=== PATIENT | male | born 1955 | race Caucasian/White ===

== ENCOUNTER 2019-11-20 21:06 | Emergency (ER) | payer MEDICARE ==
[2019-11-20 21:17] VITALS: BP 142/87; PULSE 79
--- NOTE | 2019-11-20 21:29 | EDM.PDOC ---
ED HPI GENERAL MEDICAL PROBLEM - General Chief Complaint: Chest Pain Stated Complaint: CHEST PAIN Time Seen by Provider: 11/20/19 21:13 - History of Present Illness INITIAL COMMENTS - FREE TEXT/NARRATIVE: 64-year-old male presents the emergency room with chest pain. This pain is been going on for 2 days 3 days ago he was moving quite a bit of firewood he notices the pain gets worse if he gets up and moves around. However walking and not using his upper torso muscles does not seem to bother it. Patient has no known history of coronary artery disease. He has had a 7- year smoking history but quit many years ago. The patient is not treated for hypertension or hyperlipidemia but he believes he has hyperlipidemia. The patient does not take aspirin. The patient is not having any discomfort at this moment. The patient has some maneuvers with his arms that tend to make the pain worse however he cannot duplicate those here in the emergency department. Patient does not know his family history as he is adopted. Left Chest Pain Score (Numeric/FACES): 4 - Related Data Allergies Allergy/AdvReac Type Severity Reaction Status Date / Time No Known Allergies Allergy Verified 11/20/19 21:15 Home Meds: Home Meds . [No Known Home Meds] 04/13/15 [History] Past Medical History - Past Health History Medical/Surgical History: Denies Medical/Surgical History ED ROS GENERAL - Review of Systems Review Of Systems: See Below Constitutional: Reports: No Symptoms HEENT: Reports: No Symptoms Respiratory: Reports: Pleuritic Chest Pain, Cough. Denies: Shortness of Breath , Wheezing Cardiovascular: Reports: Chest Pain. Denies: Dyspnea on Exertion, Edema Endocrine: Reports: No Symptoms GI/Abdominal: Reports: No Symptoms. Denies: Abdominal Pain, Constipation, Diarrhea, Nausea, Vomiting Musculoskeletal: Reports: No Symptoms Skin: Reports: No Symptoms Neurological: Reports: No Symptoms Psychiatric: Reports: No Symptoms Hematologic/Lymphatic: Reports: No Symptoms Immunologic: Reports: No Symptoms ED EXAM, GENERAL - Physical Exam Exam: See Below Exam Limited By: No Limitations General Appearance: Alert, No Apparent Distress Head: Atraumatic, Normocephalic Neck: Normal Inspection, Supple, Non-Tender, Full Range of Motion Respiratory/Chest: No: No Respiratory Distress, Lungs Clear, Normal Breath Sounds Cardiovascular: Regular Rate, Rhythm, No Edema, No Murmur GI/Abdominal: Normal Bowel Sounds, Soft, Non-Tender Back Exam: Normal Inspection. No: CVA Tenderness (L), Paraspinal Tenderness Extremities: Normal Inspection, No Pedal Edema Neurological: Alert, Oriented, Normal Cognition EKG INTERPRETATION EKG Date: 11/20/19 Rhythm: NSR Woodruff: Normal P-Wave: Present QRS: Normal ST-T: Other (Inverted T wave in aVF nonspecific nondiagnostic ST changes) QT: Normal Comparison: Change From Previous EKG EKG Interpretation Comments: The inverted T waves in aVF are new compared to April 2015 Course - Vital Signs Last Recorded V/S: Last Vital Signs Temp 35.9 C L 11/20/19 21:15 Pulse 79 11/20/19 21:15 Resp 18 11/20/19 21:15 BP 142/87 H 11/20/19 21:15 Pulse Ox 92 L 11/20/19 21:15 - Orders/Labs/Meds Orders: Active Orders 24 hr Category Date Time Status EKG Documentation Completion [RC] ASDIRECTED Care 11/20/19 21:25 Active EKG Documentation Completion [RC] ASDIRECTED Care 11/20/19 21:50 Active EKG Documentation Completion [RC] STAT Care 11/20/19 22:25 Active Chest 1V Frontal [CR] Stat Exams 11/20/19 21:40 Taken EKG 12 Lead [EK] Stat Ther 11/20/19 21:25 Ordered EKG 12 Lead [EK] Stat Ther 11/20/19 21:50 Ordered Labs: Laboratory Tests 11/20/19 11/20/19 11/20/19 Range/Units 21:45 21:45 21:45 WBC 9.99 H (4.23-9.07) K/mm3 RBC 4.82 (4.63-6.08) M/mm3 Hgb 15.4 (13.7-17.5) gm/dl Hct 44.6 (40.1-51.0) % MCV 92.5 H (79.0-92.2) fl MCH 32.0 (25.7-32.2) pg MCHC 34.5 (32.2-35.5) g/dl RDW Std Deviation 42.3 (35.1-43.9) fL Plt Count 364 H (163-337) K/mm3 MPV 9.4 (9.4-12.3) fl Neut % (Auto) 71.0 H (34.0-67.9) % Lymph % (Auto) 18.0 L (21.8-53.1) % Davidson % (Auto) 8.5 (5.3-12.2) % Eos % (Auto) 1.8 (0.8-7.0) Baso % (Auto) 0.4 (0.1-1.2) % Neut # (Auto) 7.09 H (1.78-5.38) K/mm3 Lymph # (Auto) 1.80 (1.32-3.57) K/mm3 Davidson # (Auto) 0.85 H (0.30-0.82) K/mm3 Eos # (Auto) 0.18 (0.04-0.54) K/mm3 Baso # (Auto) 0.04 (0.01-0.08) K/mm3 PT 10.7 (9.7-12.0) SECONDS INR 0.98 D-Dimer, Quantitative (0.19-0.50) mg/L Sodium 141 (136-145) mEq/L Potassium 3.5 (3.5-5.1) mEq/L Chloride 105 (98-107) mEq/L Carbon Dioxide 24 (21-32) mEq/L Anion Gap 15.5 H (5-15) BUN 23 H (7-18) mg/dL Creatinine 1.0 (0.7-1.3) mg/dL Est Cr Clr Drug Dosing 73.65 mL/min Estimated GFR (MDRD) > 60 (>60) mL/min BUN/Creatinine Ratio 23.0 H (14-18) Glucose 138 H (80-115) mg/dL Calcium 9.0 (8.5-10.1) mg/dL Total Bilirubin 0.6 (0.2-1.0) mg/dL AST 18 (15-37) U/L ALT 30 (16-63) U/L Alkaline Phosphatase 67 (46-116) U/L Troponin I < 0.017 (0.00-0.056) ng/mL Total Protein 7.7 (6.4-8.2) g/dl Albumin 3.6 (3.4-5.0) g/dl Globulin 4.1 gm/dL Albumin/Globulin Ratio 0.9 L (1-2) 11/20/19 11/21/19 Range/Units 21:45 00:15 WBC (4.23-9.07) K/mm3 RBC (4.63-6.08) M/mm3 Hgb (13.7-17.5) gm/dl Hct (40.1-51.0) % MCV (79.0-92.2) fl MCH (25.7-32.2) pg MCHC (32.2-35.5) g/dl RDW Std Deviation (35.1-43.9) fL Plt Count (163-337) K/mm3 MPV (9.4-12.3) fl Neut % (Auto) (34.0-67.9) % Lymph % (Auto) (21.8-53.1) % Davidson % (Auto) (5.3-12.2) % Eos % (Auto) (0.8-7.0) Baso % (Auto) (0.1-1.2) % Neut # (Auto) (1.78-5.38) K/mm3 Lymph # (Auto) (1.32-3.57) K/mm3 Davidson # (Auto) (0.30-0.82) K/mm3 Eos # (Auto) (0.04-0.54) K/mm3 Baso # (Auto) (0.01-0.08) K/mm3 PT (9.7-12.0) SECONDS INR D-Dimer, Quantitative 0.38 (0.19-0.50) mg/L Sodium (136-145) mEq/L Potassium (3.5-5.1) mEq/L Chloride (98-107) mEq/L Carbon Dioxide (21-32) mEq/L Anion Gap (5-15) BUN (7-18) mg/dL Creatinine (0.7-1.3) mg/dL Est Cr Clr Drug Dosing mL/min Estimated GFR (MDRD) (>60) mL/min BUN/Creatinine Ratio (14-18) Glucose (80-115) mg/dL Calcium (8.5-10.1) mg/dL Total Bilirubin (0.2-1.0) mg/dL AST (15-37) U/L ALT (16-63) U/L Alkaline Phosphatase (46-116) U/L Troponin I < 0.017 (0.00-0.056) ng/mL Total Protein (6.4-8.2) g/dl Albumin (3.4-5.0) g/dl Globulin gm/dL Albumin/Globulin Ratio (1-2) Meds: Medications Discontinued Medications Generic Name Dose Route Start Last Admin Trade Name Akash PRN Reason Stop Dose Admin Aspirin 324 mg 11/20/19 21:52 11/20/19 22:04 Aspirin PO 11/20/19 21:53 324 mg ONETIME ONE Administration - Re-Assessments/Exams Free Text/Narrative Re-Assessment/Exam: 11/21/19 00:59 Opponent is negative I did a total of 3 EKGs on this gentleman his first EKG had some baseline artifact especially in the inferior leads admitted get a good look at it somewhat difficult it appeared that he had inverted T waves in aVF and the stayed the same and constant through EKG 2 and 3 he also had some nonspecific ST changes on the initial EKG. Chest x-ray shows no acute cardiopulmonary changes. Initial troponin was negative second troponin was negative his heart score is 3 he got a point for moderately suspicious history he got a point for possible risk factors with a history of hyperlipidemia untreated. He had some nonspecific nondiagnostic changes on his EKG but not repolarization abnormalities and a second troponin which helped somewhat to get I advised the patient follow-up with his regular physician and discuss the pros and cons of getting a heart stress test preferably a stress echo or stress Cardiolite. The patient agrees with going home at this time. The patient has some chest discomfort here but this is mostly brought on by turning a certain way or bending over to take his boots off. After my initial encounter with this gentleman I thought a lot of his pain was probably due to muscle skeletal cause for moving all the firewood the other day. Departure - Departure Time of Disposition: 01:04 Disposition: Home, Self-Care 01 Clinical Impression: Chest pain Instructions: Nonspecific Chest Pain, Adult Referrals: Christ Garcia MD [Primary Care Provider] - Forms: ED Department Discharge Additional Instructions: Return to the emergency room with any questions problems or worsening symptoms. Follow-up with your regular doctor in 1 week discuss getting a stress test done such as a stress Cardiolite or stress echo. Take a daily baby aspirin until advised not to. Tylenol as needed for chest wall pain. Sepsis Event Note - Focused Exam Vital Signs: Vital Signs Temp Pulse Resp BP Pulse Ox 11/20/19 21:15 35.9 C L 79 18 142/87 H 92 L Date Exam was Performed: 11/21/19 Time Exam was Performed: 01:20 - My Orders Last 24 Hours: My Active Orders 11/20/19 21:25 EKG Documentation Completion [RC] ASDIRECTED EKG 12 Lead [EK] Stat 11/20/19 21:40 Chest 1V Frontal [CR] Stat 11/20/19 21:50 EKG Documentation Completion [RC] ASDIRECTED EKG 12 Lead [EK] Stat 11/20/19 22:25 EKG Documentation Completion [RC] STAT - Assessment/Plan Last 24 Hours: My Active Orders 11/20/19 21:25 EKG Documentation Completion [RC] ASDIRECTED EKG 12 Lead [EK] Stat 11/20/19 21:40 Chest 1V Frontal [CR] Stat 11/20/19 21:50 EKG Documentation Completion [RC] ASDIRECTED EKG 12 Lead [EK] Stat 11/20/19 22:25 EKG Documentation Completion [RC] STAT
[2019-11-20] MEDS ORDERED: Aspirin 81 MG Tab.Chew PO ONE (21:52)
--- NOTE | 2019-11-21 06:28 | CR ---
Chest: Frontal view of the chest was obtained utilizing portable technique. Comparison: Prior chest x-ray of 04/13/15. Heart size and mediastinum are normal. Lungs are clear with no acute parenchymal change. Bony structures are grossly intact. Impression: 1. Nothing acute is seen on portable chest x-ray. Diagnostic code #1 This report was dictated in MDT
== END 2019-11-21 01:13 | disposition home or self-care (01) ==
LOC: JD.ED 21:06
DX: R07.9 Chest pain, unspecified (principal)
CPT/HCPCS: 36415; 71045; 80053; 84484; 85025; 85379; 85610; 93005; 99285; A9270; 93010

== ENCOUNTER 2020-01-10 09:11 | Emergency (ER) | payer MEDICARE ==
[2020-01-10 09:46] VITALS: BP 180/123; PULSE 82
--- NOTE | 2020-01-10 10:43 | EDM.PDOC ---
ED HPI GENERAL MEDICAL PROBLEM - General Chief Complaint: Genitourinary Problem Stated Complaint: KIDNEY PROBLEMS/POST SURGERY Time Seen by Provider: 01/10/20 10:42 Source of Information: Reports: Patient History Limitations: Reports: No Limitations - History of Present Illness INITIAL COMMENTS - FREE TEXT/NARRATIVE: 64-year-old male presents to the ED for evaluation of diffuse lower abdominal pain and inability to void. Patient underwent left sided nephrectomy with the aid of the da Malika robot in [place] 2 days ago due to cancer of the left kidney. Renal carcinoma was picked up coincidentally on CT scan of the abdomen and pelvis. He had a Ferreira catheter placed and was removed yesterday at the time of discharge. He has a history of BPH and usually had nocturia 2-3 times nightly. He states overnight he became distended in the lower abdomen with intense pain and sat or stood at the toilet for an hour with no ability to void. Bladder scan done by triage nurse revealed 363 mils of urine in the bladder. Second 1 done after I seen him was 450 mils . he also reports he has not been able to have a bowel on for the last 3 days. He has been taking Senokot orally for the last 2 days and so far no bowel movement. This may be delayed of course due to urinary retention. Onset: Gradual Onset Date: 01/09/20 Onset Time: 20:00 Duration: Hour(s):, Getting Worse Location: Reports: Abdomen (His lower abdominal pain with inability to void.) Quality: Reports: Pressure Severity: Severe (Occasional colicky pain which I interpret as bladder spasms.) Improves with: Reports: None Worsens with: Reports: None Context: Reports: Other (Recent urological surgery with left-sided nephrectomy 2 days ago in [place]. Ferreira catheter was placed intraoperatively and removed yesterday at the time of discharge. Last night he began to notice inability to void and has developed a diffuse lower abdominal pain overnight and inability of to wait this morning at all. Bladder scan reveals 450 mils of urine in his bladder). Denies: Activity, Exercise, Lifting, Sick Contact, Trauma Associated Symptoms: Reports: Nausea/Vomiting, Other (Nausea due to the intensity of the pain. Last patient issues with no bowel movement for the last 3 days.). Denies: Confusion, Chest Pain, Cough, cough w sputum, Diaphoresis, Fever/Chills, Malaise Treatments LEGAL RECEPTIONIST: Reports: Other (see below) (Is taking pain medication but stopped them as he was concerned they were causing the problem.) Bladder Pain Score (Numeric/FACES): 5 - Related Data Allergies Allergy/AdvReac Type Severity Reaction Status Date / Time No Known Allergies Allergy Verified 11/20/19 21:15 Home Meds: Home Meds Tamsulosin HCl [Flomax] 0.4 mg PO DAILY #30 cap.er.24h 01/10/20 [Rx] levoFLOXacin [Levaquin] 500 mg PO DAILY #6 tab 01/10/20 [Rx] Past Medical History - Past Health History Medical/Surgical History: Denies Medical/Surgical History HEENT History: Reports: Impaired Vision Other HEENT History: Wears glasses Gastrointestinal History: Reports: Hiatal Hernia Genitourinary History: Reports: Other (See Below) (Went left sided nephrectomy with the aid of the da Malika robot at [facility] in [place] January 07 i.e. 2 days ago.) Oncologic (Cancer) History: Reports: Renal - Past Surgical History GI Surgical History: Reports: Hernia, Abdominal Social & Family History - Family History Family Medical History: Noncontributory - Tobacco Use Smoking Status *Q: Former Smoker Used Tobacco, but Quit: Yes Month/Year Tobacco Last Used: 08/2012 - Caffeine Use Caffeine Use: Reports: Coffee, Soda - Recreational Drug Use Recreational Drug Use: Yes Recreational Drug Type: Reports: Marijuana/Hashish - Living Situation & Occupation Living situation: Reports: Single (Self-employed) Occupation: Employed ED ROS GENERAL - Review of Systems Review Of Systems: See Below Constitutional: Reports: Malaise, Weakness, Fatigue, Decreased Appetite (Did not sleep hardly at all last night.). Denies: Fever, Chills HEENT: Reports: Glasses Respiratory: Reports: No Symptoms Cardiovascular: Reports: No Symptoms Endocrine: Reports: Fatigue GI/Abdominal: Reports: Abdominal Pain (History of present illness.), Constipation : Reports: Urinary Retention (Cute urinary retention with 450 mils of urine on bladder scan) Musculoskeletal: Reports: Back Pain, Joint Pain (Tips neck at times) Skin: Reports: No Symptoms Neurological: Reports: No Symptoms Psychiatric: Reports: No Symptoms Hematologic/Lymphatic: Reports: No Symptoms Immunologic: Reports: No Symptoms ED EXAM, GI/ABD - Physical Exam Exam: See Below Exam Limited By: No Limitations General Appearance: Alert, WD/WN, Moderate Distress, Other (In obvious pain and discomfort. Temperature is 36.8 with a heart rate of 82. Respiratory to is 20 with pulse ox of 96% BP 180/123 markedly elevated.) Eyes: Bilateral: Normal Appearance (No scleral icterus or blepharal pallor.) Respiratory/Chest: Lungs Clear, Normal Breath Sounds, No Accessory Muscle Use, Respiratory Distress Cardiovascular: Normal Peripheral Pulses, Regular Rate, Rhythm, No Edema, No Gallop, No Murmur, No Rub GI/Abdominal Exam: Distended (Especially lower abdomen with clinically full bladder.), Other (And has multiple surgical scars from left-sided nephrectomy. All of them are glued shut. No signs of any abnormalities of any of the incisions. Of course they are very tender particularly around the umbilicus. Bladder is palpable up to just below the umbilicus. Dull to percussion) Back Exam: Normal Inspection. No: CVA Tenderness (L), CVA Tenderness (R) Extremities: Normal Inspection, Normal Range of Motion, Non-Tender, No Pedal Edema Neurological: Alert, Oriented, CN II-XII Intact, Normal Cognition Psychiatric: Other (Good deal of pain.) Skin Exam: Warm, Dry, Intact, Normal Color, No Rash Course - Vital Signs Last Recorded V/S: Last Vital Signs Temp 36.8 C 01/10/20 09:36 Pulse 82 01/10/20 09:36 Resp 20 01/10/20 09:36 BP 180/123 H 01/10/20 09:36 Pulse Ox 96 01/10/20 09:36 - Orders/Labs/Meds Orders: Active Orders 24 hr Category Date Time Status Insert Ferreira Catheter [Insert Urinary Catheter] [OM.PC] Care 01/10/20 11:00 Ordered Q24H Urinary Catheter Assessment [RC] ASDIRECTED Care 01/10/20 10:50 Active Abdomen 1V Flat [CR] Stat Exams 01/10/20 10:42 Taken CULTURE URINE [RM] Stat Lab 01/10/20 10:08 Received Labs: Laboratory Tests 01/10/20 Range/Units 10:18 Urine Color Yellow (Yellow) Urine Appearance Clear (Clear) Urine pH 7.0 (5.0-8.0) Ur Specific Mertzon 1.020 (1.005-1.030) Urine Protein Negative (Negative) Urine Glucose (UA) Negative (Negative) Urine Ketones Trace H (Negative) Urine Occult Blood Trace-lysed H (Negative) Urine Nitrite Negative (Negative) Urine Bilirubin Negative (Negative) Urine Urobilinogen 0.2 (0.2-1.0) Ur Leukocyte Esterase 1+ H (Negative) Urine RBC 5-10 H (0-5) /hpf Urine WBC 5-10 H (0-5) /hpf Ur Squamous Epith Cells 0-5 (0-5) /hpf Urine Bacteria Moderate H (FEW) /hpf Urine Mucus Few (FEW) /hpf Meds: Medications Discontinued Medications Generic Name Dose Route Start Last Admin Trade Name Freq PRN Reason Stop Dose Admin Levofloxacin 500 mg 01/10/20 10:51 01/10/20 11:05 Levaquin PO 01/10/20 10:52 500 mg ONETIME ONE Administration Lidocaine HCl 10 ml 01/10/20 10:51 01/10/20 11:05 Xylocaine 2% Jelly MUCMEM 01/10/20 10:52 10 ml ONETIME ONE Administration - Radiology Interpretation Free Text/Narrative:: 64-year-old male presents to the ED with acute urinary retention. Patient underwent a left sided nephrectomy for cancer of the kidney 2 days ago January 07 and seen he is in [place]. He had a Ferreira catheter placed intraoperatively and it was removed yesterday. The history suggest that he does have pre- existing BPH was not being treated. He started having diffuse lower abdominal discomfort last evening about 2000 hrs. and then has been up most of the night trying to void and is unable to do so. Second problem is constipation with no vomiting x3 days. He has been taking Senokot orally and did stop his opioids. Clinically his surgical wounds seem to be healing adequately. Urinary bladder is up to his umbilicus and contains 450 mils on last bladder scan. Plan Ferreira catheter will be inserted with plan to leave it in place for 3 days. Advised 16 -gauge coud� tip to a leg bag. He will be given Levaquin 500 mg for urinary tract prophylaxis since he had catheter in and out yesterday and reinsertion today. Urine will be sent for analysis. KUB will be done to assess the degree of constipation. - Re-Assessments/Exams Free Text/Narrative Re-Assessment/Exam: 01/10/20 11:22 Urinalysis shows trace of lysed blood. 1+ leukocyte esterase 5- 10 RBCs per high-power field 5-10 WBCs per high-power field with moderate bacteria. Culture will be ordered. 01/10/20 11:59 strain 550 mils of clear urine after Ferreira catheter placement. KUB reveals a lot of gas distending the colon and some portions of the small bowel compatible with an ileus-like pattern. Very minimal stools present in the hepatic flexure. Patient reassured that he is not constipated and will pass a lot of flatus and likely diarrhea today since he is been taking so much Senokot the last few days. The plan will be to leave the Ferreira catheter in place for the next 3 days and the patient will deflate it and remove it himself on Wednesday morning January 12. If he has not voided in 6 to 8 hours he will return for catheter placement. I will place him on Flomax 0.4 mg once daily. He will placed on Levaquin 500 mg once daily for another 6 days to prevent infection since there was 5-10 WBCs per high-power field. Patient does not plan taking any medication for his abdominal pain at this point time. Departure - Departure Time of Disposition: 12:01 Disposition: Home, Self-Care 01 Condition: Fair Clinical Impression: Acute urinary retention, Postoperative lower abdominal pain, Benign prostatic hyperplasia with incomplete bladder emptying - Discharge Information *PRESCRIPTION DRUG MONITORING PROGRAM REVIEWED*: Not Applicable *COPY OF PRESCRIPTION DRUG MONITORING REPORT IN PATIENT MARCELO: Not Applicable Prescriptions: levoFLOXacin [Levaquin] 500 mg PO DAILY #6 tab Tamsulosin HCl [Flomax] 0.4 mg PO DAILY #30 cap.er.24h Instructions: Indwelling Urinary Catheter Care, Adult, Benign Prostatic Hyperplasia, Urinary Tract Infection, Adult, [id number], Acute Urinary Retention, Male Referrals: Christ Garcia MD [Primary Care Provider] - Forms: ED Department Discharge Additional Instructions: Evaluation in the emergency room today in regards to diffuse lower abdominal pain and inability to pass your water since surgery 2 days ago. You had a Ferreira catheter placed during the surgery and it was removed at the time of discharge yesterday. History suggest that you were having troubles with enlarged prostate prior to the surgery. Up at night to void 2 or 3 times is strongly symptomatic of enlarged prostate. It is not uncommon to have acute urinary retention occur with enlarged prostate after the type of surgery you had. 450 mils of urine were identified in your bladder on bladder scan. Ferreira catheter placed and is to remain in place for the next 3 days. You can deflate the bulb that holds the Ferreira catheter in the bladder on WednesdayJanuary 12 around 8:00 in the morning. The catheter should then easily slide out. If you are not able to void or pass your water on your own within the next 68 hours you were to return to the ED for replacement of catheter. There was a little small amount of pus cells in the urine on examination today. Because of this I want you to take Levaquin 500 mg tablet once daily for another 6 days. The first tablet was started in the ED today. Next tablet is due tomorrow morning at noon. Suggest taking medication Flomax 0.4 mg once daily at bedtime to help with your large prostate and allow you to void normally hopefully only up once at night to pee. Follow-up with personal care doctor and your urologist as planned. Sepsis Event Note (ED) - Evaluation Sepsis Screening Result: No Definite Risk - Focused Exam Vital Signs: Vital Signs Temp Pulse Resp BP Pulse Ox 01/10/20 09:36 36.8 C 82 20 180/123 H 96 - My Orders Last 24 Hours: My Active Orders 01/10/20 10:08 CULTURE URINE [RM] Stat 01/10/20 10:42 Abdomen 1V Flat [CR] Stat 01/10/20 10:50 Urinary Catheter Assessment [RC] ASDIRECTED 01/10/20 11:00 Insert Ferreira Catheter [Insert Urinary Catheter] [OM.PC] Q24H - Assessment/Plan Last 24 Hours: My Active Orders 01/10/20 10:08 CULTURE URINE [RM] Stat 01/10/20 10:42 Abdomen 1V Flat [CR] Stat 01/10/20 10:50 Urinary Catheter Assessment [RC] ASDIRECTED 01/10/20 11:00 Insert Ferreira Catheter [Insert Urinary Catheter] [OM.PC] Q24H
[2020-01-10] MEDS ORDERED: Lidocaine 2% Jelly 10 ML Urojet MUCMEM ONE (10:51)
[2020-01-10] MEDS ORDERED: Levofloxacin 250 MG Tab PO ONE (10:51)
--- NOTE | 2020-01-11 09:12 | CR ---
Abdomen: Supine view of the abdomen was obtained. Comparison: No previous study. Scattered gas within small bowel and colon is seen which appears within normal limits. Surgical clips are seen overlying the left iliac wing as well as within the left mid abdomen. No soft tissue abnormality is seen. Calcification noted to the right of the pelvis most likely due to phlebolith. Slight degenerative change is noted within the lumbar spine. Impression: 1. Findings as noted above. 2. Nothing acute is seen. Diagnostic code #2 This report was dictated in MDT
== END 2020-01-10 12:33 | disposition home or self-care (01) ==
LOC: JD.ED 09:11
DX: G89.18 Other acute postprocedural pain (principal); R10.30 Lower abdominal pain, unspecified; N40.1 Benign prostatic hyperplasia with lower urinary tract symptoms; R33.8 Other retention of urine; Z87.891 Personal history of nicotine dependence
CPT/HCPCS: 51702; 51798; 74018; 81001; 87086; 99284; A9270

== ENCOUNTER 2020-01-11 10:54 | Emergency (ER) | payer MEDICARE ==
[2020-01-11 11:12] VITALS: BP 126/103; PULSE 90
--- NOTE | 2020-01-11 11:50 | EDM.PDOC ---
ED HPI GENERAL MEDICAL PROBLEM - General Chief Complaint: Genitourinary Problem Stated Complaint: CATHETER PROBLEM Time Seen by Provider: 01/11/20 11:15 Source of Information: Reports: Patient History Limitations: Reports: No Limitations - History of Present Illness INITIAL COMMENTS - FREE TEXT/NARRATIVE: Patient is a 64-year-old male who presents to the emergency department to have his Ferreira catheter checked. He was seen in our emergency department yesterday after having a nephrectomy and being unable to urinate. Ferreira catheter was placed and he was started on Levaquin and Flomax. He states that this morning he had an episode where the catheter was not draining. States that he strained slightly and the catheter did start draining, however there was a small amount of leakage around the tube at the tip of his penis. It has not leaked since that time. He presents to have it checked to make sure it is working okay. He states it is slightly uncomfortable, however not overly painful. Penis Pain Score (Numeric/FACES): 2 - Related Data Allergies Allergy/AdvReac Type Severity Reaction Status Date / Time No Known Allergies Allergy Verified 01/11/20 11:07 Home Meds: Home Meds Tamsulosin HCl [Flomax] 0.4 mg PO DAILY #30 cap.er.24h 01/10/20 [Rx] levoFLOXacin [Levaquin] 500 mg PO DAILY #6 tab 01/10/20 [Rx] Past Medical History - Past Health History Medical/Surgical History: Denies Medical/Surgical History HEENT History: Reports: Impaired Vision Other HEENT History: Wears glasses Gastrointestinal History: Reports: Hiatal Hernia Genitourinary History: Reports: Other (See Below) Oncologic (Cancer) History: Reports: Renal - Past Surgical History GI Surgical History: Reports: Hernia, Abdominal Social & Family History - Family History Family Medical History: Noncontributory - Tobacco Use Smoking Status *Q: Never Smoker - Caffeine Use Caffeine Use: Reports: None - Recreational Drug Use Recreational Drug Use: No - Living Situation & Occupation Living situation: Reports: Single (Self-employed) Occupation: Employed ED ROS GENERAL - Review of Systems Review Of Systems: Comprehensive ROS is negative, except as noted in HPI. ED EXAM, RENAL/ - Physical Exam Exam: See Below Exam Limited By: No Limitations General Appearance: Alert, WD/WN, No Apparent Distress Respiratory/Chest: No Respiratory Distress, Lungs Clear, Normal Breath Sounds, No Accessory Muscle Use, Chest Non-Tender Cardiovascular: Normal Peripheral Pulses, Regular Rate, Rhythm, No Edema, No Gallop, No JVD, No Murmur, No Rub (Male) Exam: Normal Inspection, Circumcised. No: Penile Lesions, Scrotal Swelling, Scrotum Tenderness (L) Neurological: Alert, Oriented, CN II-XII Intact, Normal Cognition, Normal Gait, Normal Reflexes, No Motor/Sensory Deficits Psychiatric: Normal Affect, Normal Mood Skin Exam: Warm, Dry, Intact, Normal Color, No Rash Course - Vital Signs Last Recorded V/S: Last Vital Signs Temp 97.6 F 01/11/20 11:08 Pulse 90 01/11/20 11:08 Resp 17 01/11/20 11:08 BP 126/103 H 01/11/20 11:08 Pulse Ox 100 01/11/20 11:08 - Orders/Labs/Meds Orders: Active Orders 24 hr Category Date Time Status Bladder Scan [RC] ASDIRECTED Care 01/11/20 11:18 Active - Re-Assessments/Exams Free Text/Narrative Re-Assessment/Exam: 01/11/20 11:48 Exam, the catheter is flowing well. Bladder scan was completed and showed 13 mils of urine. Patient discussed the option of removing the catheter at this time and seeing if he can void. I did recommend that he keep it in for as long as possible, preferably up to the 72 hours to prevent the need for reinsertion. Also discussed possibly removing the catheter and inserting a different one to see if it is more comfortable, however he declined this option. He is in agreement with this plan. He does have a syringe at home to remove it when it is time. Advised that if he is unable to void 6 to 8 hours after the Ferreira catheter was removed, he should return to the emergency department. Departure - Departure Time of Disposition: 11:49 Disposition: Home, Self-Care 01 Condition: Good Clinical Impression: Benign prostatic hyperplasia with incomplete bladder emptying, Acute urinary retention - Discharge Information *PRESCRIPTION DRUG MONITORING PROGRAM REVIEWED*: No *COPY OF PRESCRIPTION DRUG MONITORING REPORT IN PATIENT MARCELO: No Referrals: Christ Garcia MD [Primary Care Provider] - Forms: ED Department Discharge Additional Instructions: You were seen in the emergency department today to have your Ferreira catheter rechecked. On exam, it is flowing well. The option of changing the catheter to a different size to see if it is more comfortable was discussed, however the decision was made to not do that at this time. Recommend that you leave the catheter in place for as long as possible, preferably 72 hours from when it was inserted. You may remove the catheter at that time with the syringe that you have at home. If you are unable to urinate within 6 to 8 hours after the catheter is removed, you should return to the emergency department to have it reinserted. Return to the ER as needed. Sepsis Event Note (ED) - Evaluation Sepsis Screening Result: No Definite Risk - Focused Exam Vital Signs: Vital Signs Temp Pulse Resp BP Pulse Ox 01/11/20 11:08 97.6 F 90 17 126/103 H 100 - My Orders Last 24 Hours: My Active Orders 01/11/20 11:18 Bladder Scan [RC] ASDIRECTED - Assessment/Plan Last 24 Hours: My Active Orders 01/11/20 11:18 Bladder Scan [RC] ASDIRECTED
== END 2020-01-11 12:10 | disposition home or self-care (01) ==
LOC: JD.ED 10:54
DX: N40.1 Benign prostatic hyperplasia with lower urinary tract symptoms (principal); R39.14 Feeling of incomplete bladder emptying; R33.8 Other retention of urine; Z79.899 Other long term (current) drug therapy
CPT/HCPCS: 51798; 99282; 99283

== ENCOUNTER 2020-10-12 14:10 | Emergency (ER) | payer MEDICARE ==
[2020-10-12 15:47] VITALS: BP 185/104; PULSE 71
--- NOTE | 2020-10-12 17:09 | EDM.PDOC ---
ED HPI GENERAL MEDICAL PROBLEM - General Chief Complaint: Neurological Problem Stated Complaint: DIZZINESS X 4 DAYS Time Seen by Provider: 10/12/20 16:03 - History of Present Illness INITIAL COMMENTS - FREE TEXT/NARRATIVE: 65-year-old male presents the emergency room with a chief complaint of dizziness. This is been an ongoing problem but seems to be worse over the last 4 days. Patient notices if he turns his head too fast it makes it much much worse if he moves his head slowly it does not seem to be much of a problem. He also has nausea associated with this and sometimes when he has nausea and/or vomiting on its own it aggravates the dizziness. The patient has not been driving because it bothers him that much. But he is getting around okay. Patient denies any recent infections other than he thought he had an episode of food poisoning from eating a steak that was undercooked. This seems to have brought on lots of nausea and vomiting and is aggravated the dizziness. This was fairly recent. - Related Data Allergies Allergy/AdvReac Type Severity Reaction Status Date / Time No Known Allergies Allergy Verified 10/12/20 15:47 Home Meds: Home Meds Tamsulosin HCl [Flomax] 0.4 mg PO DAILY #30 cap.er.24h 01/10/20 [Rx] levoFLOXacin [Levaquin] 500 mg PO DAILY #6 tab 01/10/20 [Rx] Past Medical History - Past Health History Medical/Surgical History: Denies Medical/Surgical History HEENT History: Reports: Impaired Vision Other HEENT History: Wears glasses Gastrointestinal History: Reports: Hiatal Hernia Genitourinary History: Reports: Other (See Below) Oncologic (Cancer) History: Reports: Renal - Past Surgical History GI Surgical History: Reports: Hernia, Abdominal Male Surgical History: Reports: Nephrectomy Social & Family History - Family History Family Medical History: No Pertinent Family History - Tobacco Use Tobacco Use Status *Q: Never Tobacco User - Caffeine Use Caffeine Use: Reports: None - Recreational Drug Use Recreational Drug Use: No - Living Situation & Occupation Living situation: Reports: Single (Self-employed) Occupation: Employed ED ROS GENERAL - Review of Systems Review Of Systems: See Below Constitutional: Reports: No Symptoms HEENT: Reports: Other (He is having some dizziness). Denies: Ear Pain Respiratory: Reports: No Symptoms Cardiovascular: Reports: No Symptoms Endocrine: Reports: No Symptoms GI/Abdominal: Reports: Abdominal Pain, Nausea, Vomiting, Other (At times his GI symptoms especially the nausea and vomiting can correlate with dizziness but sometimes he has dizziness independent of the GI symptoms) : Reports: No Symptoms Musculoskeletal: Reports: No Symptoms Skin: Reports: No Symptoms Neurological: Reports: Dizziness, Headache, Gait Disturbance (When his dizziness is acting up he has difficulty walking). Denies: Seizure, Syncope Psychiatric: Reports: No Symptoms Hematologic/Lymphatic: Reports: No Symptoms Immunologic: Reports: No Symptoms ED EXAM, DIZZINESS - Physical Exam Exam: See Below Exam Limited By: No Limitations General Appearance: Alert, No Apparent Distress Eye Exam: Bilateral Eye: EOMI, Normal Inspection, PERRL Ears: Normal External Exam, Normal Canal, Hearing Grossly Normal, Normal TMs Nose: Normal Inspection, Normal Mucosa, No Blood Throat/Mouth: Normal Inspection, Normal Lips, Normal Teeth, Normal Gums, Normal Oropharynx, Normal Voice, No Airway Compromise Head Exam: Atraumatic, Normocephalic Neck: Normal Inspection, Supple, Non-Tender, Full Range of Motion. No: Lymphadenopathy (L), Lymphadenopathy (R), Tender Midline Respiratory/Chest: No Respiratory Distress, Lungs Clear, Normal Breath Sounds Cardiovascular: Regular Rate, Rhythm, No Edema, No Murmur GI/Abdominal: Normal Bowel Sounds, Soft, Non-Tender, No Organomegaly Neurological: Alert, Normal Mood/Affect, CN II-XII Intact, Other (Hallpike's maneuver would not cause any nystagmus or dizziness) Back Exam: Normal Inspection, Full Range of Motion. No: CVA Tenderness (L), CVA Tenderness (R) Extremities: Normal Inspection, No Pedal Edema Psychiatric: Normal Affect, Normal Mood Skin Exam: Warm, Dry, Intact, Normal Color Course - Vital Signs Last Recorded V/S: Last Vital Signs Temp 36.2 C 10/12/20 15:41 Pulse 71 10/12/20 15:41 Resp 15 10/12/20 15:41 BP 185/104 H 10/12/20 15:41 Pulse Ox 94 L 10/12/20 15:41 - Re-Assessments/Exams Free Text/Narrative Re-Assessment/Exam: 10/12/20 17:10 As of this gentleman's dizziness is somewhat unusual it sounds very much like benign positional vertigo however I cannot elicit his symptoms with routine testing. Also when his GI symptoms flareup he can make his quite a bit worse. We discussed medical management and I have advised this to be used as little as possible and the patient would just assume not use medical management. At this point I think the patient is going through a GI work-up when this is done if the cause of something that may be related to his dizziness is found see how this goes. If not pursue audiology evaluation, physical therapy and possibly advanced imaging. Departure - Departure Time of Disposition: 17:12 Disposition: Home, Self-Care 01 Clinical Impression: Dizziness - Discharge Information Referrals: Christ Garcia MD [Primary Care Provider] - Additional Instructions: Return to the emergency room with any questions problems or worsening symptoms. As we discussed try not to move your head fast because this triggers your dizziness. Proceed with your gastrointestinal work-up as scheduled. If this is unrevealing discuss audiology evaluation and possibly physical therapy with your physician. Be sure to drink plenty of fluids. Sepsis Event Note (ED) - Evaluation Sepsis Screening Result: No Definite Risk - Focused Exam Vital Signs: Vital Signs Temp Pulse Resp BP Pulse Ox 10/12/20 15:41 36.2 C 71 15 185/104 H 94 L
== END 2020-10-12 17:25 | disposition home or self-care (01) ==
LOC: JD.ED 14:10
DX: R42 Dizziness and giddiness (principal); R10.9 Unspecified abdominal pain; R11.2 Nausea with vomiting, unspecified
CPT/HCPCS: 99283

== ENCOUNTER 2020-10-30 06:45 | Day surgery (SDC) | payer MEDICARE ==
[~2020-10-30 06:45] MED LIST: Lactated Ringers 1,000 ML IV SCH; Lidocaine 1%/Sod Bicarbonate in NS 8.4% 1 ML Syringe IDERM PRN; Sodium Chloride 0.9% 10 ML Syringe FLUSH PRN
--- NOTE | 2020-10-30 07:35 | PCM.PREANE ---
Preanesthetic Assessment - Procedure Proposed Procedure: egd and colonoscopy - Anesthesia/Transfusion/Family Hx Anesthesia History: Prior Anesthesia Without Reaction Type of Anesthesia Reaction: Other (see below) (iv site wynn when go sleep) Family History of Anesthesia Reaction: No Transfusion History: No Prior Transfusion(s) - Review of Systems General: No Symptoms Pulmonary: Shortness of Breath Cardiovascular: Chest Pain (right side thnks he hurt his lungs getting on and off the toilet and pushing) Gastrointestinal: Nausea Neurological: No Symptoms Other: Reports: Neck Pain (chiropractor - has hurt it iin past) - Physical Assessment NPO Status Date: 10/29/20 NPO Status Time: 23:00 Vital Signs: Last Vital Signs Temp Pulse 86 10/30/20 06:55 Resp 20 10/30/20 06:55 BP 132/95 H 10/30/20 07:01 Pulse Ox 95 10/30/20 06:55 Height: 5 ft 9 in Weight: 78.7 kg ASA Class: 2 Mental Status: Alert & Oriented x3 Airway Class: Mallampati = 1 Dentition: Reports: Dentures (top and bottom) Thyro-Mental Finger Breadths: 3 Mouth Opening Finger Breadths: 3 ROM/Head Extension: Full Lungs: Clear to Auscultation, Normal Respiratory Effort Cardiovascular: Regular Rate, Regular Rhythm - Allergies Allergies/Adverse Reactions: Allergies Allergy/AdvReac Type Severity Reaction Status Date / Time No Known Allergies Allergy Verified 10/29/20 12:53 - Blood Blood Available: No - Acknowledgements Anesthesia Type Planned: MAC Pt an Appropriate Candidate for the Planned Anesthesia: Yes Alternatives and Risks of Anesthesia Discussed w Pt/Guardian: Yes Pt/Guardian Understands and Agrees with Anesthesia Plan: Yes PreAnesthesia Questionnaire - Past Health History Medical/Surgical History: Denies Medical/Surgical History HEENT History: Reports: Impaired Vision Other HEENT History: Wears glasses, has dentures Cardiovascular History: Reports: Hypertension Respiratory History: Reports: None Gastrointestinal History: Reports: Hiatal Hernia Genitourinary History: Reports: Other (See Below) Other Genitourinary History: urinary retention, renal cell carcinoma [employer] History: Reports: None Musculoskeletal History: Reports: None Neurological History: Reports: None Psychiatric History: Reports: None Endocrine/Metabolic History: Reports: None Hematologic History: Reports: None Immunologic History: Reports: None Oncologic (Cancer) History: Reports: Renal Dermatologic History: Reports: None - Infectious Disease History Infectious Disease History: Reports: None - Past Surgical History Head Surgeries/Procedures: Reports: None HEENT Surgical History: Reports: Oral Surgery Cardiovascular Surgical History: Reports: None Respiratory Surgical History: Reports: None GI Surgical History: Reports: Hernia, Abdominal Male Surgical History: Reports: Nephrectomy Endocrine Surgical History: Reports: None Neurological Surgical History: Reports: None Musculoskeletal Surgical History: Reports: None Oncologic Surgical History: Reports: None Dermatological Surgical History: Reports: None - SUBSTANCE USE Tobacco Use Status *Q: Former Tobacco User Tobacco Use Within Last Twelve Months: No Second Hand Smoke Exposure: No Days Per Week of Alcohol Use: 1 Recreational Drug Use History: Yes Recreational Drug Type: Reports: Methaqualone (denies now) - HOME MEDS Home Medications: Home Meds Albuterol [Ventolin HFA] 2 puff INH Q4H PRN 10/29/20 [History] Bee Pollen 550 mg PO DAILY 10/29/20 [History] Cayenne 450 mg PO DAILY 10/29/20 [History] Meclizine [Antivert] 25 mg PO QID PRN 10/29/20 [History] Nattokinase 1 tab PO DAILY 10/29/20 [History] Yeast Formula 1 tab PO DAILY 10/29/20 [History] - CURRENT (IN HOUSE) MEDS Current Meds: Current Medications Lactated Ringer's (Ringers, Lactated) 1,000 mls @ 125 mls/hr IV ASDIRECTED DULCE Stop: 10/30/20 23:00 Lidocaine/Sodium Bicarbonate (Lidocaine 1%/Sod Bicarbonate In Ns 8.4% 1 Ml Syringe) 0.25 ml IDERM ONETIME PRN PRN Reason: Prior to IV Start Stop: 10/30/20 18:00 Sodium Chloride (Sodium Chloride 0.9% 10 Ml Syringe) 10 ml FLUSH ASDIRECTED PRN PRN Reason: Keep Vein Open Stop: 10/30/20 18:00
[2020-10-30] MEDS ORDERED: Albuterol 0.083% 2.5 MG/3 ML Neb Soln NEB ONE (07:45)
[2020-10-30] MEDS ORDERED: Lidocaine 1% 4 ML ONE (07:51)
[2020-10-30] MEDS ORDERED: Propofol 200 MG/20 ML SDV ONE (07:51)
[2020-10-30] MEDS ORDERED: fentaNYL 100 MCG/2 ML SDV ONE (07:51)
[2020-10-30] MEDS ORDERED: Midazolam 1 MG/ML 2 ML SDV ONE (07:51)
--- NOTE | 2020-10-30 09:10 | PCM48HPAN ---
Post Anesthesia Note - EVALUATION WITHIN 48HRS OF ANESTHETIC Vital Signs in Normal Range: Yes Patient Participated in Evaluation: Yes Respiratory Function Stable: Yes Airway Patent: Yes Cardiovascular Function Stable: Yes Hydration Status Stable: Yes Pain Control Satisfactory: Yes Nausea and Vomiting Control Satisfactory: Yes Mental Status Recovered: Yes Vital Signs: Last Vital Signs Temp Pulse 86 10/30/20 06:55 Resp 20 10/30/20 06:55 BP 132/95 H 10/30/20 07:01 Pulse Ox 97 10/30/20 07:45 0904 137/88 80 12 97.0 95% - COMMENTS/OBSERVATIONS Free Text/Narrative:: No complaints. rests
--- NOTE | 2020-10-30 09:34 | PCM.OPNOTE ---
- General Post-Op/Procedure Note Date of Surgery/Procedure: 10/30/20 Operative Procedure(s): EGD and colonoscopy Findings: 1. Irregular Z-line 2. Hiatal hernia 3. Gastritis 4. Duodenitis with polypoid tissue 5. Esophageal polyp 6. Transverse colon polyp 7. Descending colon polyp 8. Rectal polyp x2 Pre Op Diagnosis: Nausea, need for colon cancer screening Post-Op Diagnosis: same Anesthesia Technique: MAC Primary Surgeon: Audrey Chery Anesthesia Provider: Tabitha Shafer Pathology: 1. Z-line biopsies 2. Gastric antrum biopsies 3. Duodenal biopsies 4. Esophageal polyp 5. Transverse colon polyp 6. Descending colon polyp 7. Rectal polyp x2 Fluid Replacement, Intraop: 800 Complications: none apparent Condition: Good
--- NOTE | 2020-10-30 09:41 | PCM.PRNOTE ---
- Free Text/Narrative Note: Operative Report Date of Procedure: October 30, 2020 Pre Op Diagnosis: Nausea, need for colorectal cancer screening Post-Op Diagnosis: Same Operative Procedures: 1. EGD with biopsy 2. Colonoscopy to the cecum Primary Surgeon: Audrey Chery MD Anesthesia Provider: Tabitha Shafer CRNA Anesthesia Technique: MAC IV Fluid Replacement, Intraop: 800cc crystalloid Output, Urine Amount: 0cc EBL in mLs: 0cc Findings: 1. Irregular Z-line 2. Hiatal hernia 3. Gastritis 4. Duodenitis with polypoid tissue 5. Esophageal polyp 6. Transverse colon polyp 7. Descending colon polyp 8. Rectal polyp x2 Specimens: 1. Z-line biopsies 2. Gastric antrum biopsies 3. Duodenal biopsies 4. Esophageal polyp 5. Transverse colon polyp 6. Descending colon polyp 7. Rectal polyp x2 Drain/Tubes: None Indication: The patient is a 65-year-old gentleman who presented to the clinic with a history of persistent nausea. The patient reported symptoms of recent vomiting. He has never undergone any colorectal cancer screening. The patient was consented for a diagnostic EGD and screening colonoscopy. Risks of bleeding, and perforation were discussed, and the patient agreed to the risks and wished to proceed. Description of the procedure: The patient was taken back to the endoscopy suite, and placed in the left lateral decubitus position. A bite block was placed. The patient was sedated with MAC anesthesia. The Olympus video endoscope was inserted into the oropharynx and guided under direct vision into the esophagus, stomach, and duodenum. The duodenal bulb and second portion of the duodenum were remarkable for erythema and friability, there were also areas of polypoid tissue. Biopsies were taken using a cold biopsy forceps. The gastric antrum was inspected and cold biopsy forceps were used to take tissue samples for H. pylori. There was evidence of inflammation with erythema of the tissues. The scope was withdrawn to the stomach and retroflexed. There was no increased fluid, food or secretions in the upper gastrointestinal tract. No erosions or ulcers were noted. The scope was withdrawn to the esophagus. A this point we noted a small sliding hiatal hernia. The Z-line was irregular and biopsies were taken in 4 quadrants using a cold biopsy forceps. An upper esophagus polyp was noted at 21 cm, and this was biopsied with a cold biopsy forceps. The endoscope was then withdrawn Next, anorectal examination was performed. No lesions, masses or hemorrhoids were noted externally or on palpation. The scope was placed into the rectum and advanced to cecum. Upon reaching the cecum, and the patients cecum was entered. There was minimal tortuosity of the colon. The ileocecal valve was well visualized and the appendiceal orifice identified. At this point, the scope was slowly withdrawn, paying attention to the mucosa. The patient had an excellent bowel prep, 95-100% of the mucosa was visible. A flat 3 mm polyp was noted in the transverse colon and removed with a jumbo cold biopsy forceps. An additional 2 mm flat polyp was seen in the descending colon and removed with the cold biopsy forceps. Two 3-4 mm flat polyps were seen in the rectum and removed with a cold biopsy forceps. In the rectum, scope was retroflexed and some hemorrhoidal tissue was noted. The scope was placed back in the lumen and excess air was aspirated. The scope was removed. The patient tolerated the procedure very well. Complications: None apparent Condition: The patient was transported to PACU in stable condition. Audrey Chery MD General Surgery
[2020-10-30 10:11] VITALS: BP 133/88; PULSE 53
== END 2020-10-30 10:28 | disposition home or self-care (01) ==
LOC: JD.SDS 06:45
PROVIDERS: ATTEND Surgery
DX: K29.80 Duodenitis without bleeding (principal); K22.70 Barrett's esophagus without dysplasia; K31.7 Polyp of stomach and duodenum; K63.5 Polyp of colon; K31.89 Other diseases of stomach and duodenum; K22.8 Other specified diseases of esophagus; K44.9 Diaphragmatic hernia without obstruction or gangrene; I78.1 Nevus, non-neoplastic; K64.9 Unspecified hemorrhoids; I10 Essential (primary) hypertension; R07.9 Chest pain, unspecified; Z87.891 Personal history of nicotine dependence; Z85.528 Personal history of other malignant neoplasm of kidney; Z98.890 Other specified postprocedural states
CPT/HCPCS: 43239; 45380; 88305; 94640; J2250; J2704; J3010; J7120; 00813

== ENCOUNTER 2022-09-22 15:25 | Emergency (ER) | payer MEDICARE ==
[2022-09-22 17:47] LABS: ESTIMATED GFR 50 mL/min (>60)
[2022-09-22 19:12] VITALS: BP 158/99; PULSE 78
== END 2022-09-22 19:12 | disposition home or self-care (01) ==
LOC: JD.ED 15:25
DX: I48.91 Unspecified atrial fibrillation (principal); I10 Essential (primary) hypertension; Z79.01 Long term (current) use of anticoagulants
CPT/HCPCS: 36415; 71046; 71046-26; 80053; 83735; 84443; 84484; 85025; 93005; 93010; 99284; 99285

== ENCOUNTER 2024-04-27 06:28 | Emergency (ER) | payer OTHER ==
[2024-04-27] MEDS: Tenecteplase 50 MG Kit IV ONE (06:40)
[2024-04-27] MEDS: Tenecteplase 50 MG Kit ONE (06:40)
[2024-04-27] MEDS: Metoclopramide 10 MG/2 ML SDV IVPUSH ONE (06:44)
[2024-04-27] MEDS: fentaNYL 100 MCG/2 ML SDV IVPUSH ONE (06:45)
[2024-04-27 06:58] LABS: BASOPHILS ABSOLUTE AUTO 0.1 K/mm3 (0.0-0.2); BASOPHILS PERCENT AUTO 0.7 % (0.0-1.0); EOSINOPHILS ABSOLUTE AUTO 0.1 K/mm3 (0.0-0.4); EOSINOPHILS PERCENT AUTO 1.1 % (0.0-6.0); HEMATOCRIT 42.4 % (42.0-52.0); HEMOGLOBIN 14.9 gm/dl (14.0-18.0); IMMATURE GRAN ABSOLUTE AUTO 0.03 K/mm3 (0.00-0.05); IMMATURE GRAN PERCENT AUTO 0.3 % (0.0-0.4); LYMPHOCYTES ABSOLUTE AUTO 1.7 K/mm3 (1.0-4.8); LYMPHOCYTES PERCENT AUTO 18.2 % (24.0-44.0); MEAN CORPUSCULAR HEMOGLOBIN 32.9 pg (28.0-32.0); MEAN CORPUSCULAR HGB CONC 35.1 g/dl (32.0-36.0); MEAN CORPUSCULAR VOLUME 93.6 fl (83.0-99.0); MEAN PLATELET VOLUME 9.9 fl (9.4-12.4); MONOCYTES ABSOLUTE AUTO 0.8 K/mm3 (0.0-0.8); MONOCYTES PERCENT AUTO 9.1 % (0.0-8.0); NEUTROPHILS ABSOLUTE AUTO 6.4 K/mm3 (1.8-7.7); NEUTROPHILS PERCENT AUTO 70.6 % (41.0-71.0); PLATELET COUNT,PLT 296 K/mm3 (150-400); RED BLOOD CELL COUNT 4.53 M/mm3 (4.52-5.90); WHITE BLOOD CELL COUNT,WBC 9.09 K/mm3 (3.9-11.3)
[2024-04-27] MEDS: Heparin Sodium/D5W 25,000 UNITS/500 ML BAG IV SCH (07:02)
[2024-04-27 07:09] LABS: INR 1.03; PROTHROMBIN TIME 10.9 SECONDS (9.7-12.0)
[2024-04-27 07:17] LABS: A/G RATIO 1.1 (1-2); ALBUMIN 3.8 g/dl (3.4-5.0); ANION GAP 16.3 (5-15); BUN/CREATININE RATIO 16.4 (14-18); C-REACTIVE PROTEIN 0.39 mg/dL (<0.30); CALCIUM 9.3 mg/dL (8.5-10.1); CREATININE 1.4 mg/dL (0.7-1.3); EST CRCL DRUG DOSING (CG) 49.8 mL/min; MAGNESIUM 1.7 mg/dL (1.8-2.4); POTASSIUM,K 4.3 mEq/L (3.5-5.1); PROTEIN TOTAL,TP 7.2 g/dl (6.4-8.2)
[2024-04-27] MEDS: Heparin Sodium 5,000 Units/ML Vial IVPUSH ONE (07:20)
[2024-04-27 07:22] LABS: LACTIC ACID 2.4 mmol/L (0.4-2.0)
[2024-04-27] MEDS: LORazepam 2 MG/ML SDV IVPUSH ONE (07:22)
[2024-04-27] MEDS: Sodium Chloride 0.9% 1,000 ML IV SCH (07:30)
[2024-04-27] MEDS: HYDROmorphone 0.5 MG/0.5 ML Syringe IVPUSH ONE (07:41)
[2024-04-27 07:48] VITALS: BP 104/75; PULSE 55
== END 2024-04-27 07:39 ==
LOC: JD.ED 06:28
DX: I21.19 ST elevation (STEMI) myocardial infarction involving other coronary artery of inferior wall (principal); I10 Essential (primary) hypertension; J44.9 Chronic obstructive pulmonary disease, unspecified; Z79.899 Other long term (current) drug therapy
CPT/HCPCS: 36415; 71045; 80053; 83605; 83735; 83880; 84484; 85025; 85379; 85610; 85730; 86140; 93005; 96374; 96375; 99285; J1644; J2060; J2765; J3010; J3101; J7030; 93010; 99291